=== PATIENT | male | born 1965 | race Caucasian/White ===

== ENCOUNTER 2018-02-23 11:10 | Emergency (ER) | payer OTHER ==
[2018-02-23] MEDS: HYDROCODONE/APAP (5/325) TAB PO (12:44)
[2018-02-23 12:58] LABS: ADD UMIC NO; UR ASCORBIC ACID NEGATIVE (NEGATIVE); UR BILIRUBIN (Dip) NEGATIVE (NEGATIVE); UR BLOOD (Dip) NEGATIVE (NEGATIVE); UR CLARITY CLEAR (CLEAR); UR COLOR YELLOW (YELLOW); UR GLUCOSE (Dip) 3+ mg/dL (NEGATIVE); UR KETONES (Dip) NEGATIVE (NEGATIVE); UR LEUKOCYTE ESTERASE (Dip) NEGATIVE Leu/ul (NEGATIVE); UR NITRITE (Dip) NEGATIVE (NEGATIVE); UR SPECIFIC GRAVITY (Dip) 1.022 (1.003-1.030); UR TOTAL PROTEIN (Dip) NEGATIVE (NEGATIVE); UR UROBILINOGEN (Dip) NEGATIVE (NEGATIVE)
== END 2018-02-23 13:36 | disposition home or self-care (01) ==
LOC: FTE 11:10
DX: M54.5 Low back pain (principal); J44.9 Chronic obstructive pulmonary disease, unspecified; I25.10 Atherosclerotic heart disease of native coronary artery without angina pectoris; Z79.84 Long term (current) use of oral hypoglycemic drugs; Z98.61 Coronary angioplasty status
CPT/HCPCS: 81003; 87591; 99283

== ENCOUNTER 2018-06-10 12:02 | Emergency (ER) | payer OTHER ==
[2018-06-10 12:46] LABS: ADD MAN DIFF? NO
[2018-06-10] MEDS: SOD CHLORIDE 0.9% 1,000 ML IV (12:47)
[2018-06-10 12:52] LABS: WHITE BLOOD COUNT 5.8 10^3/ul (4.8-10.8)
[2018-06-10 12:52] LABS: ABNORMAL IP MESSAGE 1; BASOPHILS % 0.5 % (0.0-2.0); EOSINOPHILS # 0.1 10^3/ul (0.0-0.5); HEMATOCRIT 44.6 % (42.0-52.0); HEMOGLOBIN 15.3 g/dl (14.0-18.0); LYMPHOCYTES % 17.7 % (15.0-51.0); MEAN CORPUSCULAR HEMOGLOBIN 31.4 pg (29.0-33.0); MEAN CORPUSCULAR HGB CONC 34.3 g/dl (32.0-37.0); MEAN CORPUSCULAR VOLUME 91.6 fl (82.0-101.0); MONOCYTE # 0.8 10^3/ul (0.3-0.9); MONOCYTES % 14.4 % (0.0-11.0); NEUTROPHIL # 3.9 10^3/ul (1.6-7.5); NEUTROPHILS % 66.2 % (39.0-77.0); PLATELET COUNT 90 10^3/UL (140-415); POSITIVE DIFF @See below; RED BLOOD COUNT 4.87 10^6/ul (4.70-6.10); RED CELL DISTRIBUTION WIDTH 13.1 % (11.5-14.5)
[2018-06-10] MEDS: morphine 4 MG/ML VIAL IV (12:56)
[2018-06-10] MEDS: ONDANSETRON 4 MG INJ IV (12:56)
[2018-06-10 13:11] LABS: ALANINE AMINOTRANSFERASE 64 IU/L (13-69); ALBUMIN 4.2 g/dl (3.3-4.9); ALBUMIN/GLOBULIN RATIO 0.93; ALKALINE PHOSPHATASE 82 IU/L (42-121); ASPARTATE AMINO TRANSFERASE 131 IU/L (15-46); BILIRUBIN,INDIRECT 1.8 mg/dl (0-1.1); BILIRUBIN,TOTAL 1.8 mg/dl (0.2-1.3); BLOOD UREA NITROGEN 7 mg/dl (7-20); CALCIUM 9.5 mg/dl (8.4-10.2); CARBON DIOXIDE 25 mmol/L (21-31); CHLORIDE 97 mmol/L (97-110); GLUCOSE 216 mg/dl (70-220); LIPASE 83 U/L (23-300); SODIUM 138 mmol/L (135-144); TOTAL PROTEIN 8.7 g/dl (6.1-8.1)
[2018-06-10 13:22] LABS: TROPONIN-I < 0.012 ng/ml (0.000-0.120)
[2018-06-10 13:46] LABS: ANION GAP 19 (8-16); POTASSIUM 3.4 mmol/L (3.5-5.1)
[2018-06-10] MEDS: HYDROmorphONE 2 MG/ML SYG IV (14:39)
[2018-06-10] MEDS: LORAZEPAM 2 MG INJ IV (15:43)
== END 2018-06-10 16:48 | disposition home or self-care (01) ==
LOC: E/R 12:02
DX: R10.13 Epigastric pain (principal); R07.9 Chest pain, unspecified; I10 Essential (primary) hypertension; E11.9 Type 2 diabetes mellitus without complications; I25.10 Atherosclerotic heart disease of native coronary artery without angina pectoris; J44.9 Chronic obstructive pulmonary disease, unspecified; Z79.4 Long term (current) use of insulin; Z98.61 Coronary angioplasty status
CPT/HCPCS: 36415; 71045; 76705; 80053; 83690; 84484; 85025; 93005; 96374; 96375; 99285-25

== ENCOUNTER 2019-02-14 21:01 | Inpatient (IN) | payer OTHER ==
[2019-02-14 22:38] LABS: ADD MAN DIFF? NO
[2019-02-14 22:41] LABS: ABNORMAL IP MESSAGE 1; BASOPHILS % 0.6 % (0.0-2.0); EOSINOPHILS # 0.1 10^3/ul (0.0-0.5); EOSINOPHILS % 0.8 % (0.0-7.0); HEMATOCRIT 46.7 % (42.0-52.0); LYMPHOCYTES # 0.8 10^3/ul (0.8-2.9); LYMPHOCYTES % 12.8 % (15.0-51.0); MEAN CORPUSCULAR HEMOGLOBIN 31.9 pg (29.0-33.0); MEAN CORPUSCULAR HGB CONC 34.3 g/dl (32.0-37.0); MONOCYTE # 0.7 10^3/ul (0.3-0.9); MONOCYTES % 9.9 % (0.0-11.0); NEUTROPHILS % 75.6 % (39.0-77.0); PLATELET COUNT 96 10^3/UL (140-415); POSITIVE DIFF @See below; RED BLOOD COUNT 5.02 10^6/ul (4.70-6.10); RED CELL DISTRIBUTION WIDTH 13.2 % (11.5-14.5)
[2019-02-14 22:41] LABS: WHITE BLOOD COUNT 6.6 10^3/ul (4.8-10.8)
[2019-02-14] MEDS: SOD CHLORIDE 0.9% 1,000 ML IV (22:41)
[2019-02-14] MEDS: morphine 4 MG/ML VIAL IV (22:42)
[2019-02-14] MEDS: ONDANSETRON 4 MG INJ IV (22:42)
[2019-02-14 23:01] LABS: INR 0.98; PROTIME 13.1 Sec (11.9-14.9)
[2019-02-14 23:02] LABS: PARTIAL THROMBOPLASTIN TIME 28.4 Sec (23.0-35.0)
[2019-02-14 23:11] LABS: ANION GAP 19 (5-13); ANISOCYTOSIS 2+ (0-0); BAND NEUTROPHILS % (M) 1 % (0-4); BLOOD UREA NITROGEN 16 mg/dl (7-20); CALCIUM 9.7 mg/dl (8.4-10.2); CARBON DIOXIDE 25 mmol/L (21-31); CHLORIDE 95 mmol/L (97-110); CREATININE 1.06 mg/dl (0.61-1.24); EOSINOPHILS % (M) 3 % (0-7); ERYTHROBLAST% (NRBC) (M) 7 % (0-0); Estimated GFR > 60 mL/min (>60); GLUCOSE 214 mg/dl (70-220); LYMPHOCYTES #M 0.9 10^3/ul (0.8-2.9); LYMPHOCYTES % (M) 14 % (15-51); MONOCYTE #M 0.5 10^3/ul (0.3-0.9); MONOCYTES % (M) 8 % (0-11); PLATELET ESTIMATE DECREASED; POTASSIUM 3.6 mmol/L (3.5-5.1); SEG NEUT #M 4.9 10^3/ul (1.6-7.5); SEGMENTED NEUTROPHILS (M) % 74 % (39-77); SODIUM 139 mmol/L (135-144)
[2019-02-14 23:22] LABS: TROPONIN-I < 0.012 ng/ml (0.000-0.120)
[2019-02-14] MEDS: SOD CHLORIDE 0.9% 100 ML (23:24)
[2019-02-14] MEDS: IOHEXOL 100 ML (23:24)
[2019-02-14] MEDS: LORAZEPAM 2 MG INJ IV (23:53)
[2019-02-15] MEDS: morphine 4 MG/ML VIAL IV (01:58)
[2019-02-15] MEDS: ONDANSETRON 4 MG INJ IV ×2 (01:58→07:10)
[2019-02-15] MEDS: HYDROmorphONE 1 MG/ML SYG IV (07:10)
[2019-02-15 07:39] LABS: ADD MAN DIFF? NO
[2019-02-15 07:41] LABS: WHITE BLOOD COUNT 5.1 10^3/ul (4.8-10.8)
[2019-02-15 07:41] LABS: ABNORMAL IP MESSAGE 1; BASOPHILS % 0.6 % (0.0-2.0); EOSINOPHILS # 0.1 10^3/ul (0.0-0.5); HEMATOCRIT 41.7 % (42.0-52.0); HEMOGLOBIN 14.3 g/dl (14.0-18.0); LYMPHOCYTES # 0.9 10^3/ul (0.8-2.9); LYMPHOCYTES % 16.9 % (15.0-51.0); MEAN CORPUSCULAR HEMOGLOBIN 32.4 pg (29.0-33.0); MEAN CORPUSCULAR HGB CONC 34.3 g/dl (32.0-37.0); MEAN CORPUSCULAR VOLUME 94.6 fl (82.0-101.0); MEAN PLATELET VOLUME 10.7 fl (7.4-10.4); MONOCYTE # 0.8 10^3/ul (0.3-0.9); MONOCYTES % 15.5 % (0.0-11.0); NEUTROPHIL # 3.4 10^3/ul (1.6-7.5); NEUTROPHILS % 65.8 % (39.0-77.0); PLATELET COUNT 74 10^3/UL (140-415); POSITIVE DIFF @See below; RED BLOOD COUNT 4.41 10^6/ul (4.70-6.10); RED CELL DISTRIBUTION WIDTH 13.3 % (11.5-14.5)
[2019-02-15 08:04] LABS: LIPASE 334 U/L (23-300)
[2019-02-15 08:05] LABS: ALANINE AMINOTRANSFERASE 41 IU/L (13-69); ALBUMIN 4.5 g/dl (3.3-4.9); ALKALINE PHOSPHATASE 63 IU/L (42-121); ANION GAP 19 (5-13); ASPARTATE AMINO TRANSFERASE 69 IU/L (15-46); BLOOD UREA NITROGEN 15 mg/dl (7-20); CALCIUM 8.8 mg/dl (8.4-10.2); CARBON DIOXIDE 24 mmol/L (21-31); CHLORIDE 98 mmol/L (97-110); CREATININE 0.81 mg/dl (0.61-1.24); Estimated GFR > 60 mL/min (>60); GLUCOSE 170 mg/dl (70-220); POTASSIUM 3.9 mmol/L (3.5-5.1); SODIUM 141 mmol/L (135-144); TOTAL PROTEIN 7.5 g/dl (6.1-8.1)
[2019-02-15 08:10] LABS: ETHANOL < 10.0 mg/dl (0-0)
[2019-02-15] MEDS ORDERED: DOCUSATE SODIUM 100 MG CAP PO (09:00)
[2019-02-15] MEDS ORDERED: BISACODYL (EC) 5 MG TAB PO (09:00)
[2019-02-15] MEDS ORDERED: LABETALOL HCL 20MG INJ IV (09:00)
[2019-02-15] MEDS ORDERED: NACL 0.9% 3 ML SYG IV (09:00)
[2019-02-15] MEDS: ASPIRIN 81 MG TAB PO (10:08)
[2019-02-15] MEDS: INSULIN GLARGINE [LANtus] 3 ML PEN SC (10:10)
[2019-02-15] MEDS: LORAZEPAM 2 MG INJ IV ×2 (10:25→14:15)
[2019-02-15] MEDS ORDERED: GLUCAGON 1 MG INJ IM (10:30)
[2019-02-15] MEDS ORDERED: DEXTROSE 50% 50 ML SYRINGE IV ×2 (10:30)
[2019-02-15] MEDS ORDERED: GLUCOSE GEL 15 GRAM TUBE BUCCAL (10:30)
[2019-02-15] MEDS ORDERED: GLUCOSE GEL 15 GRAM TUBE PO ×2 (10:30)
[2019-02-15] MEDS: SOD CHLORIDE 0.45% 1,000 ML IV (18:06)
[2019-02-15] MEDS: ATORVASTATIN 80 MG TAB PO (21:11)
[2019-02-15] MEDS: ACETAMINOPHEN 325 MG TAB PO (21:14)
[2019-02-15] MEDS: SOD CHLORIDE 0.9% 500 ML IV (22:22)
[2019-02-16] MEDS: INSULIN ASPART [NOVOLOG] 3 ML PEN SC ×6 (00:42→20:23)
[2019-02-16] MEDS: SOD CHLORIDE 0.45% 1,000 ML IV ×2 (04:37→16:25)
[2019-02-16] MEDS: ACETAMINOPHEN 325 MG TAB PO ×2 (05:14→11:24)
[2019-02-16 06:09] LABS: ADD MAN DIFF? NO
[2019-02-16 06:10] LABS: WHITE BLOOD COUNT 3.9 10^3/ul (4.8-10.8)
[2019-02-16 06:10] LABS: ABNORMAL IP MESSAGE 1; BASOPHILS % 0.5 % (0.0-2.0); EOSINOPHILS # 0.2 10^3/ul (0.0-0.5); EOSINOPHILS % 4.6 % (0.0-7.0); HEMATOCRIT 41.1 % (42.0-52.0); LYMPHOCYTES # 0.9 10^3/ul (0.8-2.9); LYMPHOCYTES % 23.7 % (15.0-51.0); MEAN CORPUSCULAR HEMOGLOBIN 32.1 pg (29.0-33.0); MEAN CORPUSCULAR HGB CONC 34.1 g/dl (32.0-37.0); MEAN CORPUSCULAR VOLUME 94.3 fl (82.0-101.0); MEAN PLATELET VOLUME 10.8 fl (7.4-10.4); MONOCYTE # 0.7 10^3/ul (0.3-0.9); MONOCYTES % 16.5 % (0.0-11.0); NEUTROPHIL # 2.1 10^3/ul (1.6-7.5); NEUTROPHILS % 54.4 % (39.0-77.0); PLATELET COUNT 61 10^3/UL (140-415); POSITIVE DIFF @See below; RED BLOOD COUNT 4.36 10^6/ul (4.70-6.10); RED CELL DISTRIBUTION WIDTH 13.3 % (11.5-14.5)
[2019-02-16 06:29] LABS: HEMOGLOBIN A1C 10.2 % (0-5.9)
[2019-02-16 07:11] LABS: ALANINE AMINOTRANSFERASE 37 IU/L (13-69); ALBUMIN 3.7 g/dl (3.3-4.9); ALBUMIN/GLOBULIN RATIO 1.27; ALKALINE PHOSPHATASE 51 IU/L (42-121); ANION GAP 14 (5-13); ASPARTATE AMINO TRANSFERASE 57 IU/L (15-46); BILIRUBIN,INDIRECT 1.5 mg/dl (0-1.1); BILIRUBIN,TOTAL 1.5 mg/dl (0.2-1.3); BLOOD UREA NITROGEN 14 mg/dl (7-20); CALCIUM 8.1 mg/dl (8.4-10.2); CARBON DIOXIDE 25 mmol/L (21-31); CHLORIDE 100 mmol/L (97-110); CHOL/HDL RATIO 1.7 RATIO; CHOLESTEROL 161 mg/dl (100-200); CREATININE 0.63 mg/dl (0.61-1.24); Estimated GFR > 60 mL/min (>60); GLUCOSE 134 mg/dl (70-220); HDL CHOLESTEROL 93 mg/dl (28-71); LDL CHOLESTEROL,CALCULATED 58 mg/dl; MAGNESIUM 1.5 mg/dl (1.7-2.5); POTASSIUM 3.3 mmol/L (3.5-5.1); SODIUM 139 mmol/L (135-144); TOTAL PROTEIN 6.6 g/dl (6.1-8.1); TRIGLYCERIDES 50 mg/dl (0-149)
[2019-02-16 07:13] LABS: LIPASE 310 U/L (23-300)
[2019-02-16] MEDS: ASPIRIN 81 MG TAB PO (09:21)
[2019-02-16] MEDS: POTASSIUM CHLORIDE 100 ML IVPB (10:30)
[2019-02-16] MEDS: INSULIN GLARGINE [LANtus] 3 ML PEN SC (10:32)
[2019-02-16] MEDS: POTASSIUM CHLORIDE (SR) 20 MEQ TAB PO (11:23)
[2019-02-16] MEDS: HYDROCODONE/APAP (5/325) TAB PO ×2 (12:43→16:30)
[2019-02-16] MEDS: MAGNESIUM SULFATE 2 GM/50 ML 50 ML IVPB (12:43)
[2019-02-16] MEDS: ONDANSETRON 4 MG INJ IV (18:48)
[2019-02-16] MEDS: ATORVASTATIN 80 MG TAB PO (20:20)
[2019-02-16] MEDS: traMADol 50 MG TAB PO (20:20)
[2019-02-17] MEDS: INSULIN ASPART [NOVOLOG] 3 ML PEN SC ×6 (01:00→20:08)
[2019-02-17] MEDS: SOD CHLORIDE 0.45% 1,000 ML IV ×3 (02:48→20:05)
[2019-02-17] MEDS: ONDANSETRON 4 MG INJ IV ×2 (02:49→08:50)
[2019-02-17 05:05] LABS: ADD MAN DIFF? NO
[2019-02-17 05:13] LABS: ABNORMAL IP MESSAGE 1; BASOPHILS % 0.6 % (0.0-2.0); EOSINOPHILS # 0.2 10^3/ul (0.0-0.5); EOSINOPHILS % 4.9 % (0.0-7.0); HEMATOCRIT 41.4 % (42.0-52.0); LYMPHOCYTES % 29.6 % (15.0-51.0); MEAN CORPUSCULAR HGB CONC 33.8 g/dl (32.0-37.0); MEAN CORPUSCULAR VOLUME 94.7 fl (82.0-101.0); MEAN PLATELET VOLUME 11.1 fl (7.4-10.4); MONOCYTE # 0.5 10^3/ul (0.3-0.9); MONOCYTES % 15.5 % (0.0-11.0); NEUTROPHIL # 1.6 10^3/ul (1.6-7.5); NEUTROPHILS % 49.1 % (39.0-77.0); PLATELET COUNT 58 10^3/UL (140-415); POSITIVE DIFF @See below; RED BLOOD COUNT 4.37 10^6/ul (4.70-6.10); RED CELL DISTRIBUTION WIDTH 12.7 % (11.5-14.5)
[2019-02-17 05:13] LABS: WHITE BLOOD COUNT 3.3 10^3/ul (4.8-10.8)
[2019-02-17 05:42] LABS: ANION GAP 11 (5-13); BLOOD UREA NITROGEN 9 mg/dl (7-20); CALCIUM 7.5 mg/dl (8.4-10.2); CARBON DIOXIDE 26 mmol/L (21-31); CHLORIDE 99 mmol/L (97-110); CREATININE 0.56 mg/dl (0.61-1.24); Estimated GFR > 60 mL/min (>60); GLUCOSE 133 mg/dl (70-220); LIPASE 90 U/L (23-300); POTASSIUM 3.7 mmol/L (3.5-5.1); SODIUM 136 mmol/L (135-144)
[2019-02-17] MEDS: ASPIRIN 81 MG TAB PO (08:24)
[2019-02-17] MEDS: INSULIN GLARGINE [LANtus] 3 ML PEN SC (09:39)
[2019-02-17] MEDS: LORAZEPAM 2 MG INJ IV ×2 (09:42→17:12)
[2019-02-17] MEDS: traMADol 50 MG TAB PO (15:47)
[2019-02-17] MEDS: ATORVASTATIN 80 MG TAB PO (20:05)
[2019-02-18] MEDS: INSULIN ASPART [NOVOLOG] 3 ML PEN SC ×6 (00:50→20:10)
[2019-02-18] MEDS: ONDANSETRON 4 MG INJ IV ×3 (04:34→14:21)
[2019-02-18 05:22] LABS: ADD MAN DIFF? NO
[2019-02-18 05:36] LABS: ABNORMAL IP MESSAGE 1; BASOPHILS % 0.3 % (0.0-2.0); EOSINOPHILS # 0.2 10^3/ul (0.0-0.5); EOSINOPHILS % 3.4 % (0.0-7.0); HEMATOCRIT 40.6 % (42.0-52.0); LYMPHOCYTES # 0.9 10^3/ul (0.8-2.9); LYMPHOCYTES % 15.5 % (15.0-51.0); MEAN CORPUSCULAR HEMOGLOBIN 32.2 pg (29.0-33.0); MEAN CORPUSCULAR HGB CONC 34.5 g/dl (32.0-37.0); MEAN CORPUSCULAR VOLUME 93.3 fl (82.0-101.0); MEAN PLATELET VOLUME 11.2 fl (7.4-10.4); NEUTROPHIL # 3.8 10^3/ul (1.6-7.5); NEUTROPHILS % 64.5 % (39.0-77.0); PLATELET COUNT 68 10^3/UL (140-415); POSITIVE DIFF @See below; RED BLOOD COUNT 4.35 10^6/ul (4.70-6.10); RED CELL DISTRIBUTION WIDTH 12.8 % (11.5-14.5)
[2019-02-18] MEDS: SOD CHLORIDE 0.45% 1,000 ML IV ×3 (06:00→22:38)
[2019-02-18 06:18] LABS: ANION GAP 14 (5-13); BLOOD UREA NITROGEN 8 mg/dl (7-20); CALCIUM 7.9 mg/dl (8.4-10.2); CARBON DIOXIDE 23 mmol/L (21-31); CHLORIDE 100 mmol/L (97-110); CREATININE 0.58 mg/dl (0.61-1.24); Estimated GFR > 60 mL/min (>60); GLUCOSE 107 mg/dl (70-220); POTASSIUM 3.4 mmol/L (3.5-5.1); SODIUM 137 mmol/L (135-144)
[2019-02-18] MEDS: INSULIN GLARGINE [LANTus] (100 UNITS/ML) SYG SC (09:02)
[2019-02-18] MEDS: ASPIRIN 81 MG TAB PO (09:05)
[2019-02-18] MEDS: traMADol 50 MG TAB PO ×2 (12:21→21:54)
[2019-02-18] MEDS ORDERED: ONDANSETRON 4 MG INJ IV (15:00)
[2019-02-18] MEDS: HYDROCODONE/APAP (5/325) TAB PO (16:41)
[2019-02-18] MEDS: TRIMETHOBENZAMIDE 100 MG/ML VIAL IM (20:32)
[2019-02-18] MEDS: ATORVASTATIN 80 MG TAB PO (21:54)
[2019-02-18] MEDS: LORAZEPAM 2 MG INJ IV (22:40)
[2019-02-19] MEDS: INSULIN ASPART [NOVOLOG] 3 ML PEN SC ×6 (01:00→20:01)
[2019-02-19 06:11] LABS: ADD MAN DIFF? NO
[2019-02-19 06:25] LABS: ABNORMAL IP MESSAGE 1; BASOPHILS % 0.2 % (0.0-2.0); EOSINOPHILS # 0.2 10^3/ul (0.0-0.5); EOSINOPHILS % 3.2 % (0.0-7.0); HEMATOCRIT 41.8 % (42.0-52.0); HEMOGLOBIN 14.3 g/dl (14.0-18.0); LYMPHOCYTES % 16.9 % (15.0-51.0); MEAN CORPUSCULAR HEMOGLOBIN 32.1 pg (29.0-33.0); MEAN CORPUSCULAR HGB CONC 34.2 g/dl (32.0-37.0); MEAN CORPUSCULAR VOLUME 93.7 fl (82.0-101.0); MEAN PLATELET VOLUME 11.1 fl (7.4-10.4); MONOCYTE # 1.1 10^3/ul (0.3-0.9); MONOCYTES % 17.7 % (0.0-11.0); NEUTROPHIL # 3.7 10^3/ul (1.6-7.5); NEUTROPHILS % 61.7 % (39.0-77.0); PLATELET COUNT 67 10^3/UL (140-415); POSITIVE DIFF @See below; RED BLOOD COUNT 4.46 10^6/ul (4.70-6.10)
[2019-02-19 06:44] LABS: ANION GAP 13 (5-13); BLOOD UREA NITROGEN 8 mg/dl (7-20); CALCIUM 8.4 mg/dl (8.4-10.2); CARBON DIOXIDE 25 mmol/L (21-31); CHLORIDE 99 mmol/L (97-110); CREATININE 0.66 mg/dl (0.61-1.24); Estimated GFR > 60 mL/min (>60); GLUCOSE 104 mg/dl (70-220); POTASSIUM 3.6 mmol/L (3.5-5.1); SODIUM 137 mmol/L (135-144)
[2019-02-19] MEDS: ASPIRIN 81 MG TAB PO (08:38)
[2019-02-19] MEDS: SOD CHLORIDE 0.45% 1,000 ML IV ×2 (08:38→17:45)
[2019-02-19] MEDS: traMADol 50 MG TAB PO ×2 (08:46→18:48)
[2019-02-19] MEDS: INSULIN GLARGINE [LANTus] (100 UNITS/ML) SYG SC (08:51)
[2019-02-19] MEDS: LORAZEPAM 2 MG INJ IV ×2 (17:54→23:16)
[2019-02-19] MEDS: ONDANSETRON INJ 8 MG in SOD CHLORIDE 0.9% 50 ML IV (17:54)
[2019-02-19] MEDS: ATORVASTATIN 80 MG TAB PO (20:01)
[2019-02-19] MEDS: HYDROCODONE/APAP (5/325) TAB PO (20:01)
[2019-02-20] MEDS: ACCU-CHEK XX (02:00)
[2019-02-20] MEDS: SOD CHLORIDE 0.45% 1,000 ML IV (04:30)
[2019-02-20 05:10] LABS: ADD MAN DIFF? NO
[2019-02-20 05:31] LABS: BASOPHILS % 0.4 % (0.0-2.0); EOSINOPHILS # 0.3 10^3/ul (0.0-0.5); HEMOGLOBIN 15.1 g/dl (14.0-18.0); LYMPHOCYTES # 1.7 10^3/ul (0.8-2.9); LYMPHOCYTES % 25.1 % (15.0-51.0); MEAN CORPUSCULAR HEMOGLOBIN 32.1 pg (29.0-33.0); MEAN CORPUSCULAR HGB CONC 34.3 g/dl (32.0-37.0); MEAN CORPUSCULAR VOLUME 93.6 fl (82.0-101.0); MEAN PLATELET VOLUME 11.1 fl (7.4-10.4); MONOCYTE # 1.3 10^3/ul (0.3-0.9); MONOCYTES % 18.9 % (0.0-11.0); NEUTROPHIL # 3.5 10^3/ul (1.6-7.5); NEUTROPHILS % 51.3 % (39.0-77.0); PLATELET COUNT 103 10^3/UL (140-415); RED CELL DISTRIBUTION WIDTH 12.9 % (11.5-14.5)
[2019-02-20 05:31] LABS: WHITE BLOOD COUNT 6.9 10^3/ul (4.8-10.8)
[2019-02-20 05:35] LABS: ANION GAP 12 (5-13); BLOOD UREA NITROGEN 12 mg/dl (7-20); CALCIUM 8.4 mg/dl (8.4-10.2); CARBON DIOXIDE 26 mmol/L (21-31); CHLORIDE 98 mmol/L (97-110); CREATININE 0.74 mg/dl (0.61-1.24); Estimated GFR > 60 mL/min (>60); GLUCOSE 196 mg/dl (70-220); POTASSIUM 3.1 mmol/L (3.5-5.1); SODIUM 136 mmol/L (135-144)
[2019-02-20] MEDS: ASPIRIN 81 MG TAB PO (08:02)
[2019-02-20] MEDS: INSULIN GLARGINE [LANTus] (100 UNITS/ML) SYG SC (08:17)
[2019-02-20] MEDS: INSULIN ASPART [NOVOLOG] 3 ML PEN SC ×2 (08:17→12:04)
[2019-02-20] MEDS: POTASSIUM CHLORIDE (SR) 20 MEQ TAB PO (12:15)
[2019-02-20] MEDS: traMADol 50 MG TAB PO (12:19)
== END 2019-02-20 17:36 | disposition home or self-care (01) | DRG 391 ==
LOC: E/R 21:01 → 6WM 02-15 16:55
PROVIDERS: Family Medicine
DX: K52.9 Noninfective gastroenteritis and colitis, unspecified (principal); K85.90 Acute pancreatitis without necrosis or infection, unspecified; E11.9 Type 2 diabetes mellitus without complications; I10 Essential (primary) hypertension; I25.10 Atherosclerotic heart disease of native coronary artery without angina pectoris; F10.10 Alcohol abuse, uncomplicated; Y90.0 Blood alcohol level of less than 20 mg/100 ml; E78.5 Hyperlipidemia, unspecified; J44.9 Chronic obstructive pulmonary disease, unspecified; G43.109 Migraine with aura, not intractable, without status migrainosus; M54.5 Low back pain; R10.13 Epigastric pain; R55 Syncope and collapse; Z79.4 Long term (current) use of insulin; Z79.82 Long term (current) use of aspirin; F17.200 Nicotine dependence, unspecified, uncomplicated; Z95.5 Presence of coronary angioplasty implant and graft
CPT/HCPCS: 36415; 70450; 70496; 70498; 70551; 71045; 72128; 74176; 80048; 80053; 80061; 80307; 82962; 83036; 83690; 83735; 84443; 84484; 85025; 85610; 85730; 93005; 93306; 96361; 96374; 96375; 96376; 97116; 97162; 97166; 97530; 99217; 99285-25; G0378

== ENCOUNTER 2019-05-23 09:06 | Emergency (ER) | payer OTHER ==
[2019-05-23] MEDS: morphine 4 MG/ML VIAL IV (11:18)
[2019-05-23] MEDS: ONDANSETRON 4 MG INJ IV ×2 (11:18→14:20)
[2019-05-23] MEDS: SOD CHLORIDE 0.9% 1,000 ML IV (11:20)
[2019-05-23] MEDS: HYDROmorphONE 2 MG/ML SYG IV (12:32)
[2019-05-23] MEDS: LORAZEPAM 2 MG INJ IV (14:20)
== END 2019-05-23 14:25 | disposition home or self-care (01) ==
LOC: E/R 09:06
DX: R10.13 Epigastric pain (principal); I10 Essential (primary) hypertension; E11.9 Type 2 diabetes mellitus without complications; R11.2 Nausea with vomiting, unspecified; Z79.4 Long term (current) use of insulin; Z79.82 Long term (current) use of aspirin
CPT/HCPCS: 36415; 76705; 80053; 81001; 82962; 83690; 85025; 96374; 96375; 96376; 99285-25